=== PATIENT | female | born 1990 | race Caucasian/White ===

== ENCOUNTER 2016-07-31 08:42 | Inpatient (IN) | payer OTHER ==
[~2016-07-31] VITALS: Ht 152.5 cm; Wt 84.1 kg
[~2016-07-31 08:42] MED LIST: BCP TD
[2016-09-17 18:42] VITALS: BP 138/93; PULSE 92; TEMP 98.7
[2016-09-17] MEDS ORDERED: PRENATAL1 TA7 PO (19:13)
[2016-09-17] MEDS ORDERED: ZYRTEC5 MG PO (19:14)
[2016-09-17 20:05] VITALS: BP 140/83; PULSE 92
[2016-09-17 20:35] VITALS: BP 136/73; PULSE 83
[2016-09-17 20:47] LABS: BASO % 0.3 % (0.0-2.0); EOS # 0.2 (0.0-0.7); EOS % 1.8 % (0-4.0); GRAN # 6.4 (1.4-6.5); GRAN % 67.8 % (42.2-75.2); HEMOGLOBIN 12.1 g/dl (12.5-16.0); LYMPH # 2.2 (1.2-3.4); LYMPH % 23.3 % (20.0-51.0); MEAN CELL VOLUME 89 fl (80.0-100.0); MEAN CORPUSCULAR HEMOGLOBIN 29 pg (27.0-31.0); MEAN CORPUSCULAR HGB CONC 33 g/dl (33.0-37.0); MONO # 0.6 (0.1-0.6); MONO % 6.2 % (1.7-9.3); PLATELET COUNT 201 K/mm3 (130-400); RED BLOOD COUNT 4.13 M/mm3 (4.10-5.30); WHITE BLOOD COUNT 9.4 K/mm3 (4.8-10.8)
[2016-09-17 20:55] LABS: HEMATOCRIT 36.8 % (37.0-47.0)
[2016-09-17 21:05] VITALS: BP 132/87; PULSE 86
[2016-09-17 21:35] VITALS: BP 131/97; PULSE 96
[2016-09-17 22:05] VITALS: BP 147/95; PULSE 85
[2016-09-17] MEDS ORDERED: PRILOSEC10 MG PO (23:05)
[2016-09-18] VITALS (72 sets, daily range): BP systolic 114–176; BP diastolic 61–123; PULSE 65–123; TEMP 98–99.7
[2016-09-19] VITALS (9 sets, daily range): BP systolic 122–145; BP diastolic 79–96; PULSE 100–120; TEMP 97.4–98.3
[2016-09-19 09:03] LABS: BASO # 0.1 (0.0-0.2); BASO % 0.4 % (0.0-2.0); EOS % 0.2 % (0-4.0); GRAN # 14.9 (1.4-6.5); GRAN % 81.7 % (42.2-75.2); LYMPH # 2.1 (1.2-3.4); LYMPH % 11.7 % (20.0-51.0); MEAN CELL VOLUME 90 fl (80.0-100.0); MEAN CORPUSCULAR HGB CONC 33 g/dl (33.0-37.0); MEAN PLATELET VOLUME 11.7 fl (7.4-10.4); MONO # 1.1 (0.1-0.6); MONO % 5.7 % (1.7-9.3); PLATELET COUNT 186 K/mm3 (130-400); RED BLOOD COUNT 3.92 M/mm3 (4.10-5.30); REDCELL DISTRIBUTION WIDTH-CV 14.6 % (11.5-14.5); WHITE BLOOD COUNT 18.3 K/mm3 (4.8-10.8)
[2016-09-19 09:05] LABS: HEMATOCRIT 35.3 % (37.0-47.0); HEMOGLOBIN 11.7 g/dl (12.5-16.0); MEAN CORPUSCULAR HEMOGLOBIN 30 pg (27.0-31.0)
[2016-09-20 07:40] VITALS: BP 140/90; PULSE 98; TEMP 98.5
[2016-09-20] MEDS ORDERED: PROCARDIA XL 3030 MG PO (09:03)
[2016-09-20] MEDS ORDERED: PERCOCET 325 MG1 TA2 PO (09:03)
[2016-09-20] MEDS ORDERED: MOTRIN 600600 MG/TAB PO (09:03)
[2016-09-20 20:50] VITALS: BP 122/81; PULSE 106; TEMP 98.7
[2016-09-21 07:22] VITALS: BP 134/87; PULSE 112; TEMP 97.5
== END 2016-09-21 12:05 | disposition home or self-care (01) | DRG 765 ==
LOC: EDSTATUS 08:42 → OB 15:17 → LDR 09-17 12:02 → OB 09-17 18:46 → LDR 09-18 08:45 → OB 09-18 23:24
PROVIDERS: Obstetrics & Gynecology
PROC: 10D00Z1 Extraction of Products of Conception, Low, Open Approach (ICD-10-PCS; principal; 2016-09-18)
PROC: 3E033VJ Introduction of Other Hormone into Peripheral Vein, Percutaneous Approach (ICD-10-PCS; 2016-09-18)
DX: O48.0 Post-term pregnancy (principal); O13.3 Gestational [pregnancy-induced] hypertension without significant proteinuria, third trimester; O62.1 Secondary uterine inertia; Z3A.40 40 weeks gestation of pregnancy; Z37.0 Single live birth
CPT/HCPCS: J0690; J1885; J2270; J2370; J2400; J2405; J2590; J3010; J7120

== ENCOUNTER 2017-10-09 14:08 | Emergency (ER) | payer OTHER ==
[~2017-10-09] VITALS: Ht 152.4 cm; Wt 72.7 kg
[~2017-10-09 14:08] MED LIST changes: +MOTRIN 600600 MG/TAB PO; +PERCOCET 325 MG1 TA2 PO; +PRENATAL1 TA7 PO; +PRILOSEC10 MG PO; +PROCARDIA XL 3030 MG PO; +ZYRTEC5 MG PO
[2017-10-09 14:34] VITALS: TEMP 99.8
[2017-10-09 17:19] LABS: COLLECTION METHOD CLEAN CATCH
[2017-10-09 17:22] LABS: BASO % 0.2 % (0.0-2.0); EOS # 0.1 (0.0-0.7); EOS % 0.7 % (0-4.0); GRAN # 9.3 (1.4-6.5); GRAN % 84.8 % (42.2-75.2); HEMATOCRIT 44.7 % (37.0-47.0); LYMPH % 8.6 % (20.0-51.0); MEAN CELL VOLUME 87 fl (80.0-100.0); MEAN CORPUSCULAR HEMOGLOBIN 29 pg (27.0-31.0); MEAN CORPUSCULAR HGB CONC 34 g/dl (33.0-37.0); MEAN PLATELET VOLUME 9.3 fl (7.4-10.4); MONO # 0.6 (0.1-0.6); MONO % 5.3 % (1.7-9.3); PLATELET COUNT 284 K/mm3 (130-400); RED BLOOD COUNT 5.17 M/mm3 (4.10-5.30); REDCELL DISTRIBUTION WIDTH-CV 12.9 % (11.5-14.5)
[2017-10-09 17:28] LABS: MUCOUS Present /lpf; PH 5 (5-8); URINE APPEARANCE Clear; URINE BACTERIA Rare /hpf; URINE BILIRUBIN Negative (NEGATIVE); URINE BLOOD 1+ (NEGATIVE); URINE COLOR Yellow; URINE GLUCOSE Negative (NEGATIVE); URINE KETONE 1+ (NEGATIVE); URINE LEUKOCYTE ESTERASE Negative (NEGATIVE); URINE NITRATE Negative (NEGATIVE); URINE PROTEIN(semi-quant) Negative (NEGATIVE); URINE UROBILINOGEN Negative (NEGATIVE)
[2017-10-09 17:54] LABS: ALBUMIN 4.7 gm/dL (3.5-5.0); CALCIUM 9.3 mg/dL (8.4-10.2); CREATININE, serum 0.58 mg/dL (0.52-1.25); POTASSIUM 3.9 mmol/L (3.4-5.0); TOTAL PROTEIN 8.3 gm/dL (6.4-8.2)
[2017-10-09] MEDS ORDERED: CARAFATE 1GM1 G PO (19:25)
[2017-10-09] MEDS ORDERED: NORCO 325 MG-51 TAB PO (19:56)
[2017-10-09] MEDS ORDERED: ZOFRAN ODT4 MG PO (19:56)
[2017-10-09 20:10] VITALS: BP 120/60; PULSE 88
== END 2017-10-09 20:12 | disposition home or self-care (01) ==
LOC: COL.ER 14:08
PROVIDERS: Physician Assistant
DX: K29.70 Gastritis, unspecified, without bleeding (principal); K29.80 Duodenitis without bleeding
CPT/HCPCS: J2270; J2405; J7030; Q9967

== ENCOUNTER 2017-10-24 14:01 | Day surgery (SDC) | payer OTHER ==
[~2017-10-24] VITALS: Ht 152.4 cm; Wt 73.9 kg
[~2017-10-24 14:01] MED LIST changes: +CARAFATE 1GM1 G PO; +NORCO 325 MG-51 TAB PO; +ZOFRAN ODT4 MG PO
[2017-10-24] MEDS ORDERED: ZANTAC 7575 MG PO (14:31)
[2017-10-24 14:49] VITALS: BP 118/70; PULSE 80; TEMP 97.8
[2017-10-24 16:03] VITALS: BP 123/78; PULSE 95; TEMP 97.2
[2017-10-24 16:15] VITALS: BP 98/68; PULSE 79
[2017-10-24 16:30] VITALS: BP 106/60; PULSE 80
[2017-10-24 16:34] VITALS: BP 121/84; PULSE 96
== END 2017-10-24 17:12 | disposition home or self-care (01) ==
LOC: SDCO 14:01
DX: K21.0 Gastro-esophageal reflux disease with esophagitis (principal); K92.0 Hematemesis; Z87.11 Personal history of peptic ulcer disease; Z88.1 Allergy status to other antibiotic agents; Z88.2 Allergy status to sulfonamides; R51 Headache
CPT/HCPCS: J2250; J2405; J3010; J7030

== ENCOUNTER → 2017-11-21 | Outpatient (CLI) | payer OTHER ==
[~2017-11-21] MED LIST changes: +ZANTAC 7575 MG PO
== END ==
LOC: COL.RAD 10:26
DX: R10.9 Unspecified abdominal pain (principal); R11.2 Nausea with vomiting, unspecified

== ENCOUNTER 2020-01-05 16:14 | Inpatient (IN) | payer OTHER ==
[2020-01-05] VITALS (43 sets, daily range): BP systolic 107–196; BP diastolic 66–133; PULSE 66–112; TEMP 97.6–98.8
[~2020-01-05] VITALS: Ht 154.9 cm; Wt 90.9 kg
[2020-01-05] MEDS ORDERED: PROTONIX 40MG T40 MG PO (16:32)
[2020-01-05] MEDS ORDERED: ZOLOFT 100MG100 MG PO (16:33)
[2020-01-05] MEDS ORDERED: PRENATAL TABLET PO (16:33)
[2020-01-05] MEDS ORDERED: ZYRTEC 10MG10 MG PO (16:33)
--- NOTE | 2020-01-05 16:48 | NUR ---
PT HERE FOR LABOR CHECK, LABS, AND SERIAL BLOOD PRESSURES PER DR VALENTIN. FHT'S FOUND IN THE 150'S WITH MODERATE VARIABILITY AND ACCELS. ASSESSMENT COMPLETED. PT REPORTS SHE IS VERY NERVOUS. PLAN OF CARE REVIEWED. IS AT BEDSIDE.
[2020-01-05 17:04] LABS: COLLECTION METHOD CLEAN CATCH
[2020-01-05 17:08] LABS: MEAN CELL VOLUME 78 fl (80.0-100.0); MEAN CORPUSCULAR HGB CONC 31 g/dl (33.0-37.0); MEAN PLATELET VOLUME 11.9 fl (7.4-10.4); PLATELET COUNT 175 K/mm3 (130-400); RED BLOOD COUNT 3.95 M/mm3 (4.10-5.30); REDCELL DISTRIBUTION WIDTH-CV 14.9 % (11.5-14.5)
[2020-01-05 17:10] LABS: HEMATOCRIT 30.6 % (37.0-47.0); HEMOGLOBIN 9.4 g/dl (12.5-16.0); MEAN CORPUSCULAR HEMOGLOBIN 24 pg (27.0-31.0)
[2020-01-05 17:15] LABS: MUCOUS Present /lpf; PH 6 (5-8); URINE APPEARANCE Cloudy; URINE BACTERIA Moderate /hpf; URINE BILIRUBIN Negative (NEGATIVE); URINE BLOOD Negative (NEGATIVE); URINE COLOR Yellow; URINE GLUCOSE 1+ (NEGATIVE); URINE KETONE Negative (NEGATIVE); URINE LEUKOCYTE ESTERASE Negative (NEGATIVE); URINE NITRATE Negative (NEGATIVE); URINE PROTEIN(semi-quant) 3+ (NEGATIVE); URINE UROBILINOGEN Negative (NEGATIVE); URINE WBC 20-50 /hpf
[2020-01-05 17:23] LABS: ALBUMIN 2.6 gm/dL (3.5-5.0); BILIRUBIN,TOTAL 0.7 mg/dL (0.0-1.0); CALCIUM 7.9 mg/dL (8.4-10.2); CREATININE, serum 0.79 (0.52-1.25); POTASSIUM 4.1 mmol/L (3.4-5.0); TOTAL PROTEIN 5.5 gm/dL (6.4-8.2)
--- NOTE | 2020-01-05 17:30 | NUR ---
PHONED DR VALENTIN AT 1726 WITH BP READINGS AND LAB RESULTS. PLAN IS TO DO A AT 1830. ORDERS RECEIVED FOR AND TO ADMINISTER LABETALOL 10MG IV FOR BP'S. NOTIFIED PT AND . PLAN OF CARE DISCUSSED, QUESTIONS ANSWERED, CONSENTS SIGNED.
--- NOTE | 2020-01-05 19:50 | NUR ---
at bedside in PACU. Orders for elevated BP's received from provider. 2004: PRN IV labetalol given per orders for elevated BP's See vital signs intervetion for BPs. Pt moved back to labor room for starting of magnesium per orders. Plan of care explained to pt and who verbalize understanding. Questions answered. 2034: Magnesium bolus explained and started at this time. Marlo RN checked magnesium bolus with this RN. 2041: PO labetalol administered per orders. 2044: BP's remain elevated, See process interventions for VS details. PRN IV labetalol administered. 2125: Maintance dose of Magniesum started at this time and double checked with Saniya AHUMADA. 2132: BP's remain elevated with PRN and scheduled medications. notified. See physican notification and new orders. 2144: PRN IV labetalol given for BPs. See process interventions for vital sign details. 2150: PO Procardia XL explained and administered at this time. Denies questions at this time. Pericare provided and pads changed. Pt going to try and get some rest at this time. 0020: Urine output 5mls in the last hour. updated on pts status. See physican notification. 0035: Pt and updated on new orders. 500ml NS bolus started at this time. 0105: Bolus completed and urine output 40mls in last hour. 0125: updated on pts urine output. No new orders at this time.
[2020-01-05 22:16] LABS: BASO # 0.1 (0.0-0.2); BASO % 0.4 % (0.0-2.0); EOS # 0.2 (0.0-0.7); EOS % 1.6 % (0-4.0); GRAN # 8.2 (1.4-6.5); GRAN % 74.1 % (42.2-75.2); LYMPH % 17.5 % (20.0-51.0); MEAN CELL VOLUME 79 fl (80.0-100.0); MEAN CORPUSCULAR HGB CONC 31 g/dl (33.0-37.0); MEAN PLATELET VOLUME 13.4 fl (7.4-10.4); MONO # 0.7 (0.1-0.6); MONO % 5.8 % (1.7-9.3); PLATELET COUNT 199 K/mm3 (130-400)
[2020-01-05 22:17] LABS: HEMATOCRIT 30.7 % (37.0-47.0); HEMOGLOBIN 9.4 g/dl (12.5-16.0); MEAN CORPUSCULAR HEMOGLOBIN 24 pg (27.0-31.0)
[2020-01-06] VITALS (37 sets, daily range): BP systolic 101–154; BP diastolic 52–103; PULSE 52–93; TEMP 97.2–98.6
--- NOTE | 2020-01-06 02:29 | NUR ---
BP 138/95 0234: 20mg IV labetalol administered at this time per orders. 0245: BP recheck 131/84.
[2020-01-06 08:50] LABS: COLLECTION METHOD IN
[2020-01-06 09:06] LABS: MUCOUS Present /lpf; PH 5 (5-8); SQUAMOUS EPITHELIAL 0-2 /hpf; URINE APPEARANCE Hazy; URINE BACTERIA None Seen /hpf; URINE BILIRUBIN Negative (NEGATIVE); URINE BLOOD 2+ (NEGATIVE); URINE COLOR Yellow; URINE GLUCOSE Negative (NEGATIVE); URINE KETONE Negative (NEGATIVE); URINE LEUKOCYTE ESTERASE Negative (NEGATIVE); URINE NITRATE Negative (NEGATIVE); URINE PROTEIN(semi-quant) 2+ (NEGATIVE); URINE RBC >50 /hpf; URINE UROBILINOGEN Negative (NEGATIVE)
[2020-01-06 09:14] LABS: BASO % 0.2 % (0.0-2.0); EOS % 0.1 % (0-4.0); GRAN # 12.7 (1.4-6.5); GRAN % 79.3 % (42.2-75.2); LYMPH # 2.4 (1.2-3.4); LYMPH % 14.7 % (20.0-51.0); MEAN CELL VOLUME 79 fl (80.0-100.0); MEAN CORPUSCULAR HGB CONC 31 g/dl (33.0-37.0); MEAN PLATELET VOLUME 11.2 fl (7.4-10.4); MONO # 0.8 (0.1-0.6); MONO % 4.9 % (1.7-9.3); PLATELET COUNT 133 K/mm3 (130-400)
[2020-01-06 09:23] LABS: HEMATOCRIT 26.1 % (37.0-47.0); HEMOGLOBIN 8.2 g/dl (12.5-16.0); MEAN CORPUSCULAR HEMOGLOBIN 25 pg (27.0-31.0)
[2020-01-06 09:30] LABS: ALBUMIN 2.4 gm/dL (3.5-5.0); BILIRUBIN,TOTAL 0.7 mg/dL (0.0-1.0); CALCIUM 7.2 mg/dL (8.4-10.2); CREATININE, serum 0.81 (0.52-1.25); POTASSIUM 4.6 mmol/L (3.4-5.0); TOTAL PROTEIN 5.2 gm/dL (6.4-8.2)
--- NOTE | 2020-01-06 12:00 | NUR ---
PATIENT [place] [facility] [place] AT 1200
--- NOTE | 2020-01-06 12:30 | NUR ---
O2 OFF AT THIS TIME
--- NOTE | 2020-01-06 13:08 | NUR ---
[employer] met with patient as SW was advised patient is possibly interested in setting up Advance Directives. SW provided information sheet about Advance Directives and two copies of DPOA-HC form. Patient was interested in forms but does not want to fill them out at this time. Patient states she is fine with her who is legal next of kin making medical decisions for her if she is not able. SW addressed anxiety and depression during . Patient states she had anxiety and depression before her and that she sees Fozia Watson at [facility] in [place]. Patient denies any further concerns or questions at this time.
[2020-01-07 00:10] VITALS: BP 112/63; PULSE 92; TEMP 97.6
[2020-01-07 07:30] VITALS: BP 127/69; PULSE 89; TEMP 98.7
[2020-01-07 07:45] LABS: BASO % 0.2 % (0.0-2.0); EOS # 0.2 (0.0-0.7); EOS % 1.7 % (0-4.0); GRAN % 75.3 % (42.2-75.2); LYMPH # 2.2 (1.2-3.4); LYMPH % 16.7 % (20.0-51.0); MEAN CELL VOLUME 79 fl (80.0-100.0); MEAN CORPUSCULAR HGB CONC 31 g/dl (33.0-37.0); MEAN PLATELET VOLUME 11.9 fl (7.4-10.4); MONO # 0.7 (0.1-0.6); MONO % 5.3 % (1.7-9.3); PLATELET COUNT 143 K/mm3 (130-400); RED BLOOD COUNT 2.91 M/mm3 (4.10-5.30)
[2020-01-07 07:47] LABS: HEMATOCRIT 23.1 % (37.0-47.0); HEMOGLOBIN 7.2 g/dl (12.5-16.0); MEAN CORPUSCULAR HEMOGLOBIN 25 pg (27.0-31.0)
[2020-01-07 08:27] LABS: COLLECTION METHOD IN
[2020-01-07 08:43] LABS: PH 6 (5-8); URINE APPEARANCE Hazy; URINE BACTERIA None Seen /hpf; URINE BILIRUBIN Negative (NEGATIVE); URINE BLOOD 3+ (NEGATIVE); URINE COLOR Red; URINE GLUCOSE Negative (NEGATIVE); URINE KETONE Negative (NEGATIVE); URINE LEUKOCYTE ESTERASE Negative (NEGATIVE); URINE NITRATE Negative (NEGATIVE); URINE PROTEIN(semi-quant) 2+ (NEGATIVE); URINE RBC >50 /hpf; URINE UROBILINOGEN Negative (NEGATIVE); URINE WBC 20-50 /hpf
[2020-01-07 08:46] LABS: ALBUMIN 2.4 gm/dL (3.5-5.0); BILIRUBIN,TOTAL 0.4 mg/dL (0.0-1.0); CALCIUM 7.7 mg/dL (8.4-10.2); CREATININE, serum 0.86 (0.52-1.25); POTASSIUM 4.1 mmol/L (3.4-5.0); TOTAL PROTEIN 5.2 gm/dL (6.4-8.2)
[2020-01-07 11:00] VITALS: BP 122/75; PULSE 92; TEMP 99
[2020-01-07] MEDS ORDERED: PERCOCET 325 MG1 TA2 PO (12:58)
[2020-01-07] MEDS ORDERED: IBU600 MG PO (12:58)
[2020-01-07] MEDS ORDERED: NORMODYNE200 MG PO (12:59)
[2020-01-07 16:00] VITALS: BP 110/60; PULSE 86; TEMP 99.3
[2020-01-07 20:30] VITALS: BP 124/73; PULSE 85; TEMP 97.5
[2020-01-08] VITALS: BP 137/88; PULSE 98; TEMP 97.9
[2020-01-08 04:00] VITALS: BP 129/82; PULSE 100; TEMP 98.8
[2020-01-08 07:00] VITALS: BP 138/86; PULSE 85; TEMP 98.1
[2020-01-09] MEDS ORDERED: LASIX 20MG TABL20 MG PO (23:30)
== END 2020-01-08 10:30 | disposition home or self-care (01) | DRG 788 ==
LOC: LDRO 16:14 → LDR 16:17 → LDRO 17:28 → LDR 17:28 → OB 01-06 13:30
PROVIDERS: ADMIT Obstetrics & Gynecology
PROC: 10D00Z1 Extraction of Products of Conception, Low, Open Approach (ICD-10-PCS; principal; 2020-01-05)
DX: O14.14 Severe pre-eclampsia complicating childbirth (principal); O99.344 Other mental disorders complicating childbirth; Z37.0 Single live birth; F41.9 Anxiety disorder, unspecified; F32.9 Major depressive disorder, single episode, unspecified; O99.62 Diseases of the digestive system complicating childbirth; K21.9 Gastro-esophageal reflux disease without esophagitis; O99.214 Obesity complicating childbirth; E66.9 Obesity, unspecified; O34.211 Maternal care for low transverse scar from previous cesarean delivery; Z3A.36 36 weeks gestation of pregnancy; Z88.2 Allergy status to sulfonamides
CPT/HCPCS: J1885; J2370; J2405; J2590; J3475; J7040; J7120

== ENCOUNTER 2020-01-09 20:32 | Inpatient (IN) | payer OTHER ==
[~2020-01-09] VITALS: Ht 152.4 cm; Wt 90.9 kg
[~2020-01-09 20:32] MED LIST changes: +IBU600 MG PO; +NORMODYNE200 MG PO; +PRENATAL TABLET PO; +PROTONIX 40MG T40 MG PO; +ZOLOFT 100MG100 MG PO; +ZYRTEC 10MG10 MG PO
[2020-01-09 21:30] LABS: BASO % 0.4 % (0.0-2.0); EOS # 0.3 (0.0-0.7); EOS % 2.9 % (0-4.0); GRAN # 8.2 (1.4-6.5); GRAN % 75.2 % (42.2-75.2); LYMPH # 1.8 (1.2-3.4); LYMPH % 16.2 % (20.0-51.0); MEAN CELL VOLUME 80 fl (80.0-100.0); MEAN CORPUSCULAR HGB CONC 31 g/dl (33.0-37.0); MEAN PLATELET VOLUME 11.2 fl (7.4-10.4); MONO # 0.5 (0.1-0.6); MONO % 4.7 % (1.7-9.3); PLATELET COUNT 213 K/mm3 (130-400); RED BLOOD COUNT 2.91 M/mm3 (4.10-5.30)
[2020-01-09 21:32] LABS: HEMOGLOBIN 7.1 g/dl (12.5-16.0); MEAN CORPUSCULAR HEMOGLOBIN 24 pg (27.0-31.0)
[2020-01-09 21:33] LABS: HEMATOCRIT 23.3 % (37.0-47.0)
[2020-01-09 21:37] LABS: ALBUMIN 2.7 gm/dL (3.5-5.0); BILIRUBIN,TOTAL 0.7 mg/dL (0.0-1.0); CALCIUM 8.2 mg/dL (8.4-10.2); CREATININE, serum 0.66 (0.52-1.25); POTASSIUM 4.5 mmol/L (3.4-5.0); TOTAL PROTEIN 5.6 gm/dL (6.4-8.2)
[2020-01-09 21:41] LABS: INR 0.9 (0.8-3.0); PROTHROMBIN TIME 9.8 SECONDS (9.7-12.8)
[2020-01-09 22:01] LABS: TROPONIN-I 0.039 ng/mL (0.000-0.035)
[2020-01-09] MEDS ORDERED: LASIX 20MG TABL20 MG PO (23:30)
[2020-01-10] VITALS (10 sets, daily range): BP systolic 123–155; BP diastolic 75–109; PULSE 92–107; TEMP 97.5–98.9
--- NOTE | 2020-01-10 01:45 | NUR ---
Patient to room 221 via wheelchair from ER. Patient resting in bed comfortably. Alert and oriented. INT to right wrist noted. Lung sounds clear bilaterally. +3 pitting edema noted to bilateral lower extremities. Patient oriented to room and call light. Plan of care of reviewed.
[2020-01-10 09:21] LABS: BASO % 0.3 % (0.0-2.0); EOS # 0.2 (0.0-0.7); EOS % 1.9 % (0-4.0); GRAN # 8.6 (1.4-6.5); GRAN % 77.4 % (42.2-75.2); LYMPH # 1.7 (1.2-3.4); LYMPH % 15.6 % (20.0-51.0); MEAN CELL VOLUME 81 fl (80.0-100.0); MEAN CORPUSCULAR HGB CONC 30 g/dl (33.0-37.0); MEAN PLATELET VOLUME 11.5 fl (7.4-10.4); MONO # 0.5 (0.1-0.6); MONO % 4.2 % (1.7-9.3); PLATELET COUNT 256 K/mm3 (130-400); RED BLOOD COUNT 2.88 M/mm3 (4.10-5.30); REDCELL DISTRIBUTION WIDTH-CV 16.2 % (11.5-14.5)
[2020-01-10 09:22] LABS: HEMATOCRIT 23.4 % (37.0-47.0); MEAN CORPUSCULAR HEMOGLOBIN 24 pg (27.0-31.0)
[2020-01-10 09:29] LABS: ALBUMIN 2.8 gm/dL (3.5-5.0); BILIRUBIN,TOTAL 0.6 mg/dL (0.0-1.0); CALCIUM 8.2 mg/dL (8.4-10.2); CREATININE, serum 0.67 (0.52-1.25); POTASSIUM 4.3 mmol/L (3.4-5.0); TOTAL PROTEIN 5.8 gm/dL (6.4-8.2)
[2020-01-11 02:10] VITALS: BP 145/95; PULSE 96; TEMP 97.7
[2020-01-11 06:00] VITALS: BP 128/87; PULSE 93; TEMP 98
[2020-01-11 07:26] LABS: BASO # 0.1 (0.0-0.2); BASO % 0.6 % (0.0-2.0); EOS # 0.3 (0.0-0.7); EOS % 3.2 % (0-4.0); GRAN # 5.5 (1.4-6.5); GRAN % 65.1 % (42.2-75.2); LYMPH # 2.1 (1.2-3.4); LYMPH % 24.9 % (20.0-51.0); MEAN CELL VOLUME 81 fl (80.0-100.0); MEAN CORPUSCULAR HGB CONC 30 g/dl (33.0-37.0); MEAN PLATELET VOLUME 10.5 fl (7.4-10.4); MONO # 0.5 (0.1-0.6); MONO % 5.4 % (1.7-9.3); PLATELET COUNT 260 K/mm3 (130-400); REDCELL DISTRIBUTION WIDTH-CV 16.5 % (11.5-14.5)
[2020-01-11 07:36] LABS: HEMATOCRIT 22.7 % (37.0-47.0); HEMOGLOBIN 6.8 g/dl (12.5-16.0); MEAN CORPUSCULAR HEMOGLOBIN 24 pg (27.0-31.0)
[2020-01-11 07:43] LABS: ALBUMIN 2.8 gm/dL (3.5-5.0); BILIRUBIN,TOTAL 0.6 mg/dL (0.0-1.0); CALCIUM 8.3 mg/dL (8.4-10.2); CREATININE, serum 0.6 (0.52-1.25); POTASSIUM 4.3 mmol/L (3.4-5.0); TOTAL PROTEIN 5.7 gm/dL (6.4-8.2)
[2020-01-11 08:04] VITALS: BP 129/87; PULSE 82; TEMP 98.2
[2020-01-11] MEDS ORDERED: PROCARDIA XL 3030 MG PO (09:21)
--- NOTE | 2020-01-11 09:46 | NUR ---
2662 DR AGUIRRE AT BEDSIDE. ASESSMENT DONE AND ORDERS TO DISMISS PATIENT TO HOME. TELEY OFF AND IV DC'D. 7198 ALL DISCHARGE INSTRUCTIONS GIVEN TO PATIENT AND .
== END 2020-01-11 10:20 | disposition home or self-care (01) | DRG 776 ==
LOC: COL.ER 20:32 → OB 23:09
PROVIDERS: Emergency Medicine; ADMIT Obstetrics & Gynecology
DX: O90.89 Other complications of the puerperium, not elsewhere classified (principal); J90 Pleural effusion, not elsewhere classified; I31.3 Pericardial effusion (noninflammatory); O99.345 Other mental disorders complicating the puerperium; F53.0 Postpartum depression; O99.62 Diseases of the digestive system complicating childbirth; K21.9 Gastro-esophageal reflux disease without esophagitis; Z87.442 Personal history of urinary calculi
CPT/HCPCS: J1940; Q9967